=== PATIENT | female | born 2000 | race Caucasian/White ===

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

== ENCOUNTER 2021-01-15 21:59 | Emergency (ER) | payer OTHER, SELFPAY ==
[2021-01-15] MEDS ORDERED: Ondansetron PF 4 MG/2 ML Vial ONE (22:08)
[2021-01-15] MEDS ORDERED: Acetaminophen 325 MG TAB ONE (22:26)
[2021-01-15] MEDS ORDERED: Sodium Chloride 0.9% 1,000 ML ONE (22:35)
[2021-01-15 22:41] LABS: BHCG - Serum Negative (NEGATIVE); Pregs Control Bar Appear? YES (CONTROL BAR)
[2021-01-15 22:42] LABS: ALT (SGPT) 10 U/L (8-55); AST (SGOT) 16 U/L (5-34); Albumin 4.5 g/dL (3.5-5.0); Alkaline Phosphatase 76 U/L (40-110); Anion Gap 16 mmol/L (10-20); BUN (Urea Nitrogen) 9 mg/dL (7.0-18.7); Bilirubin, Total 0.6 mg/dL (0.2-1.2); Calc. Creatinine Clearance 0 mL/min (70-130); Calcium 9.6 mg/dL (7.8-10.44); Carbon Dioxide 22 mmol/L (22-29); Chloride 101 mmol/L (98-107); Globulin 2.9 g/dL (2.4-3.5); Glucose 116 mg/dL (70-105); Potassium 3.2 mmol/L (3.5-5.1); Protein, Total 7.4 g/dL (6.0-8.3); Sodium 136 mmol/L (136-145)
[2021-01-15 22:58] LABS: Band 5 % (5-11); Hemoglobin 11.8 g/dL (12.0-16.0); Lymphocytes 13 % (21-51); MDiff Complete? YES; Mean Corpuscular HGB CONC 30.9 g/dL (32.0-36.0); Mean Corpuscular Hemoglobin 29.6 pg (27.0-31.0); Mean Corpuscular Volume 95.6 fL (78.0-98.0); Mean Platelet Volume 10.7 fL (7.4-10.4); Monocytes 6 % (0-10); Neutrophil 76 % (42-75); Platelet Count 185 thou/uL (130-400); Platelet Morphology Comment Appears Adequate; RBC Distribution Width 11.2 % (11.5-14.5); Red Blood Cell (RBC) Count 3.99 mill/uL (4.20-5.40)
[2021-01-15] MEDS ORDERED: Ibuprofen 200 MG TAB ONE (23:07)
[2021-01-15 23:08] LABS: Bilirubin Negative (Negative); Blood, Urine Negative (Negative); Clarity Clear (Clear); Glucose, Urine (Dipstick) Negative (Negative); Ketone, Urine Negative (Negative); Leukocyte Negative (Negative); Nitrite Negative (Negative); Protein, Urine (Dipstick) Negative (Neg-Trace); Urobilinogen 0.2 mg/dL (Less than 2)
[2021-01-15] MEDS ORDERED: Sodium Chloride 0.9% 500 ML ONE (23:10)
[2021-01-15 23:20] LABS: SARS-CoV-2 NAA Rapid Test Not Detected (NotDetected)
[2021-01-15] MEDS ORDERED: Lorazepam 2 MG/ML VIAL ONE (23:31)
[2021-01-15] MEDS ORDERED: Cefepime 2 GM VIAL ONE (23:33)
[2021-01-15] MEDS ORDERED: Sodium Chloride 0.9% 100 ML ONE (23:34)
[2021-01-16] MEDS ORDERED: Vancomycin HCl 500 MG VIAL ONE ×2 (00:01→01:05)
[2021-01-16] MEDS ORDERED: Vancomycin HCl 750 MG VIAL ONE (00:01)
[2021-01-16] MEDS ORDERED: Sodium Chloride 0.9% 250 ML 250 ML ONE (00:08)
[2021-01-16] MEDS ORDERED: Ampicillin 2 GM VIAL ONE (00:18)
[2021-01-16] MEDS ORDERED: Sodium Chloride 0.9% 100 ML ONE ×2 (00:20→01:05)
[2021-01-16 00:37] LABS: Amphetamine Not Detected (NotDetected); Barbiturates Screen Not Detected (NotDetected); Benzodiazepine Screen Not Detected (NotDetected); Cocaine Metabolite Screen Not Detected (NotDetected); Medtox Control Line Valid? VALID (VALID); Methadone Not Detected (NotDetected); Methamphetamine Not Detected (NotDetected); Opiate Screen Not Detected (NotDetected); Oxycodone Screen Not Detected (NotDetected); Phencyclidine (PCP) Not Detected (NotDetected); THC/Cannabinoid Screen Not Detected (NotDetected); Tricyclic Screen Not Detected (NotDetected)
[2021-01-16] MEDS ORDERED: Dexamethasone 20 MG/5 ML VIAL ONE (01:11)
== END 2021-01-16 01:26 | disposition short-term general hospital (02) ==
LOC: NAV ERS 21:59
DX: A41.9 Sepsis, unspecified organism (principal); R51.9 Headache, unspecified; Z20.822 Contact with and (suspected) exposure to COVID-19
CPT/HCPCS: 0240U; 70450; 71045; 80053; 80306; 81003; 83605; 84443; 84484; 84703; 85025; 87040; 87086; 93005; 96365; 96367; 96375; J0290; J0692; J1100; J2060; J2405; J3370; J3490; J7030; J7050

== ENCOUNTER 2022-09-27 09:46 | Emergency (ER) | payer SELFPAY | END 2022-09-27 11:40 | disposition home or self-care (01) | LOC: NAV ERS 09:46 | DX: J06.9 Acute upper respiratory infection, unspecified (principal); B34.9 Viral infection, unspecified; H69.93 Unspecified Eustachian tube disorder, bilateral; Z20.822 Contact with and (suspected) exposure to COVID-19 | CPT/HCPCS: 87081; 87430; 87804; 99283; U0003; U0005 ==

== ENCOUNTER 2023-05-18 08:33 | Emergency (ER) | payer SELFPAY | END 2023-05-18 09:05 | disposition home or self-care (01) | LOC: NAV ERS 08:33 | DX: H10.31 Unspecified acute conjunctivitis, right eye (principal) | CPT/HCPCS: 99283 ==

== ENCOUNTER 2023-08-01 06:38 | Emergency (ER) | payer SELFPAY | END 2023-08-01 07:55 | disposition home or self-care (01) | LOC: NAV ERS 06:38 | DX: J06.9 Acute upper respiratory infection, unspecified (principal) | CPT/HCPCS: 87081; 87430; 87804; 99283 ==

== ENCOUNTER 2023-12-01 10:23 | Emergency (ER) | payer BC, SELFPAY ==
[2023-12-01] MEDS ORDERED: Ondansetron ODT 4 MG TAB ONE (10:45)
== END 2023-12-01 11:28 | disposition home or self-care (01) ==
LOC: NAV ERS 10:23
DX: B34.9 Viral infection, unspecified (principal)
CPT/HCPCS: 87081; 87430; 87804; 99284; Q0162